=== PATIENT | female | born 1990 | race Caucasian/White ===

== ENCOUNTER 2018-08-07 01:11 | Inpatient (IN) | payer OTHER ==
[2018-08-07] VITALS (7 sets, daily range): BP systolic 103–140; BP diastolic 58–79
[~2018-08-07] VITALS: Ht 180.3 cm; Wt 155.6 kg
[2018-08-07] MEDS ORDERED: TRILEPTAL150 MG PO ×3 (01:24→08:23)
[2018-08-07] MEDS ORDERED: NUEDEXTA 20-101 EACH PO (01:25)
[2018-08-07] MEDS ORDERED: PAROXETINE7.5 MG PO (01:26)
[2018-08-07 01:49] LABS: ABSOLUTE LYMPHOCYTES 3.4 thou/uL (0.8-5.3); ABSOLUTE MONOCYTES 1.4 thou/uL (0.0-1.2); ABSOLUTE NEUTROPHILS 9.5 thou/uL (1.6-8.1); BASOPHILS 0.3 %; HEMOGLOBIN 12.4 gm/dL (12.0-15.0); LYMPHOCYTES 23.4 %; MCH 23.2 pg (26.0-34.0); MCHC 32.6 g/dL (28.0-37.0); MCV 71.2 fL (80.0-100.0); MONOCYTES 9.8 %; MPV 6.4 fl. (7.2-11.1); NUCLEATED RBCS 0 /100WBC; PLATELET COUNT* 473 thou/uL (150-400); POLYS 66.5 %; RBC 5.34 mil/uL (4.20-5.00); RDW-CV 16.3 % (10.5-14.5); WBC 14.3 thou/uL (4.0-11.0)
[2018-08-07 02:01] LABS: CALCIUM 9.2 mg/dL (8.5-10.1); CREATININE 0.9 mg/dL (0.6-1.3); POTASSIUM 3.9 mmol/L (3.5-5.1)
[2018-08-07 02:12] LABS: ALBUMIN 3.4 g/dL (3.4-5.0); TOTAL BILIRUBIN 0.3 mg/dL (<0.1-1.0); TOTAL PROTEIN 7.8 g/dL (6.4-8.2)
[2018-08-07 02:19] LABS: INR 1.1
[2018-08-07] MEDS ORDERED: ZOFRAN ODT4 MG SUBLING ×2 (02:58)
[2018-08-07] MEDS ORDERED: AUGMENTIN 875-1 EACH PO ×2 (02:58)
[2018-08-07] MEDS ORDERED: NORCO 5-325 TA1 EACH PO ×2 (02:58)
[2018-08-07 03:00] LABS: URINE BILIRUBIN NEGATIVE (Negative); URINE BLOOD 3+ (Negative); URINE CLARITY CLOUDY; URINE COLOR YELLOW; URINE GLUCOSE-RANDOM NEGATIVE (Negative); URINE KETONES NEGATIVE (Negative); URINE PROTEIN 2+ (Negative); URINE UROBILINOGEN 0.2 E.U./dl (0.2-1.0)
[2018-08-07 03:01] LABS: URINE LEUKOCYTES-REFLEX 2+ (Negative); URINE NITRITE-REFLEX POSITIVE (Negative)
[2018-08-07 03:15] LABS: PLATELET ESTIMATE INCREASED
[2018-08-07 03:16] LABS: HYPOCHROMASIA 1+; MICROCYTES 2+
[2018-08-07 03:20] LABS: CASTS None Seen /LPF (None Seen); SQUAMOUS 4-10 Moderate /LPF (0-3); URINE WBC-REFLEX >25 Many /HPF (0-5)
[2018-08-07 03:21] LABS: CRYSTALS None Seen /LPF (None Seen); URINE RBC >20 Many /HPF (0-2); WBC CLUMPS Moderate (None Seen)
--- NOTE | 2018-08-07 11:40 | EKG ---
[place] [address] ELECTROCARDIOGRAM REPORT Name: DAKOTACHUKCGLENROY ROSEANNE Room: [place] [address] ADM IN .R.#: [id number] Admission: 08/07/18 Attend Phys: Kris Reed MD Discharge: Date of : 89 Report #: [id number] THIS REPORT FOR: //name// [facility] ED Test Date: 2018-08-07 Test Time: 02:01:56 Pat Name: GLENROY PEMBERTON Department: Room: [facility] Gender: F Wellness Coordinator: Wally ADAMSON : 1990 Requested By: Saul Shirley Order Number: [id number] MD: Jaden Lovell Measurements Intervals [place] Rate: 119 P: 26 DE: 165 QRS: 1 QRSD: 89 T: 30 QT: 314 QTc: 442 Interpretive Statements Sinus tachycardia Baseline wander in lead(s) V2,V3,V4,V5 No previous ECG available for comparison Electronically Signed On 08-07-2018 11:40:26 CDT by Jadne Lovell [email or web address] <ELECTRONICALLY SIGNED> By: Jaden Lovell MD, [facility] 08/07/18 [id number] [id number] Jaden Lovell MD, [facility] /EPI
[2018-08-08] VITALS: BP 126/53
[2018-08-08 04:00] VITALS: BP 129/72
[2018-08-08 05:27] LABS: HEMATOCRIT 31.3 % (37.0-47.0); MCH 22.6 pg (26.0-34.0); MCHC 31.5 g/dL (28.0-37.0); MCV 71.8 fL (80.0-100.0); MPV 6.7 fl. (7.2-11.1); RBC 4.35 mil/uL (4.20-5.00); RDW-CV 16.5 % (10.5-14.5); WBC 12.3 thou/uL (4.0-11.0)
[2018-08-08 05:37] LABS: CALCIUM 8.6 mg/dL (8.5-10.1); CREATININE 0.8 mg/dL (0.6-1.3); MAGNESIUM 1.8 mg/dL (1.8-2.4); POTASSIUM 3.6 mmol/L (3.5-5.1)
[2018-08-08 05:38] LABS: HEMOGLOBIN 9.8 gm/dL (12.0-15.0)
[2018-08-08 09:00] VITALS: BP 105/39
[2018-08-08 11:54] VITALS: BP 109/48
[2018-08-08 16:01] VITALS: BP 117/59
[2018-08-08 20:00] VITALS: BP 116/76
[2018-08-09] VITALS: BP 124/68; BP 182/86
[2018-08-09 05:41] LABS: HEMATOCRIT 30.2 % (37.0-47.0); HEMOGLOBIN 9.7 gm/dL (12.0-15.0); MCH 23.2 pg (26.0-34.0); MCHC 32.3 g/dL (28.0-37.0); MCV 71.8 fL (80.0-100.0); MPV 6.8 fl. (7.2-11.1); RBC 4.21 mil/uL (4.20-5.00); RDW-CV 16.5 % (10.5-14.5); WBC 9.5 thou/uL (4.0-11.0)
[2018-08-09 05:46] LABS: CALCIUM 8.8 mg/dL (8.5-10.1); CREATININE 0.6 mg/dL (0.6-1.3); MAGNESIUM 2.1 mg/dL (1.8-2.4); POTASSIUM 4.2 mmol/L (3.5-5.1)
[2018-08-09 10:30] VITALS: BP 137/84
[2018-08-09] MEDS ORDERED: CIPRO500 MG PO ×2 (12:28)
[2018-08-09 14:06] VITALS: BP 124/68
== END 2018-08-09 15:32 | disposition home or self-care (01) | DRG 872 ==
LOC: M.ERS 01:11 → M.2W 03:09 → M.TBA-ER 03:09 → M.2W 04:15
PROVIDERS: Family Medicine; Internal Medicine; ADMIT Family Medicine
DX: A41.9 Sepsis, unspecified organism (principal); N39.0 Urinary tract infection, site not specified; Z68.42 Body mass index [BMI] 45.0-49.9, adult; R31.9 Hematuria, unspecified; E66.01 Morbid (severe) obesity due to excess calories; Z88.8 Allergy status to other drugs, medicaments and biological substances

== ENCOUNTER 2018-08-30 00:15 | Emergency (ER) | payer OTHER ==
[~2018-08-30] VITALS: Ht 182.9 cm; Wt 149.7 kg
[~2018-08-30 00:15] MED LIST: AUGMENTIN 875-1 EACH PO; CIPRO500 MG PO; NORCO 5-325 TA1 EACH PO; NUEDEXTA 20-101 EACH PO; PAROXETINE7.5 MG PO; TRILEPTAL150 MG PO; ZOFRAN ODT4 MG SUBLING
[2018-08-30] MEDS ORDERED: TRAZODONE HCL50 MG PO (00:22)
[2018-08-30] MEDS ORDERED: ACETAMINOPHEN-1 EAC1 PO (00:56)
[2018-08-30 01:05] VITALS: BP 133/74
== END 2018-08-30 01:05 | disposition home or self-care (01) ==
LOC: M.ERS 00:15
DX: S93.691A Other sprain of right foot, initial encounter (principal); Z88.1 Allergy status to other antibiotic agents; W18.49XA Other slipping, tripping and stumbling without falling, initial encounter; Y93.89 Activity, other specified; Y92.89 Other specified places as the place of occurrence of the external cause; Y99.8 Other external cause status